=== PATIENT | female | born 1990 | race Asian ===

== ENCOUNTER 2023-06-24 01:40 | Inpatient (IN) ==
[2023-06-24] MEDS ORDERED: Buffered Lidocaine 1% SYRIN 1 ml INTRADERM ONE (03:13)
[2023-06-24] MEDS ORDERED: Promethazine INJ(RESTRICTED) 25 MG/ML 1 ml VIAL IV PRN (03:13)
[2023-06-24] MEDS ORDERED: Nalbuphine 10 MG/ML 1 ML VIAL IV PRN (03:13)
[2023-06-24] MEDS ORDERED: Lactated Ringers 1000 ml BAG 1,000 ML IV ONE ×2 (03:13→09:36)
[2023-06-24] MEDS ORDERED: Oxytocin in LR 20,000 MILLI.UNIT/1,000 ML BAG IV SCH ×2 (03:15→20:35)
[2023-06-24] MEDS ORDERED: Lactated Ringers 1000 ml BAG 1,000 ML IV SCH ×2 (04:00→21:00)
[2023-06-24 04:39] LABS: ABS Basophils 0.1 10^3/uL (0.0-0.1); ABS Eosinophils 0.1 10^3/uL (0.0-0.5); ABS Lymphocytes 1.8 10^3/uL (1.0-4.8); ABS Monocytes 0.5 10^3/uL (0.0-0.9); ABS Neutrophils 5.6 10^3/uL (1.5-7.6); ABS Nucleated RBC 0.01 10^3/ul; Hemoglobin 12.9 g/dL (11.5-14.3); Lymphocyte % 22.4 %; Mean Corpuscular Hemoglobin 31.7 pg (27-33); Mean Corpuscular Hgb Conc 34.7 g/dL (31-36); Mean Corpuscular Volume 91.4 fL (80-97); Mean Platelet Volume 10.2 fL (7.5-11.2); Nucleated Red Blood Cells % 0.1 /100 WBC (0.0-0.4); Platelet Count 227 10^3/uL (150-450); Red Blood Count 4.05 10^6/uL (3.63-4.92); Red Cell Distribution Width 12.7 % (12-17); White Blood Count 7.9 10^3/uL (3.8-11.8)
[2023-06-24 04:58] LABS: Urine Benzodiazepine Screen None Detected (None Detect); Urine Cannabinoids Screen None Detected (None Detect); Urine Opiates Screen None Detected (None Detect)
[2023-06-24] MEDS ORDERED: Lidocaine 1% w EPI 1:200,000 SDV 30 ML VIAL ONE ×2 (08:50→09:52)
[2023-06-24] MEDS ORDERED: OBEPIDURAL (200 ML) 200 ML EPIDURAL ONE (08:50)
[2023-06-24] MEDS ORDERED: Phenylephrine 40 mcg/mL 10mL (400mcg) SYRINGE IV PUSH PRN ×2 (09:36)
[2023-06-24] MEDS ORDERED: Sodium Citrate/Citric Acid LIQ 15 ML UDC PO PRN (09:36)
[2023-06-24] MEDS ORDERED: OBEPIDURAL (200 ML) 200 ML EPIDURAL SCH (10:00)
[2023-06-24 10:26] LABS: Urine Appearance Cloudy; Urine Bilirubin Negative (Negative); Urine Blood 1+ (Negative); Urine Color Yellow; Urine Glucose Negative (Negative); Urine Ketones Trace (Negative); Urine Nitrite Negative (Negative); Urine Protein 3+(>=500 mg/dL) (Negative); Urine Urobilinogen Negative (Negative)
[2023-06-24 10:54] LABS: Urine Bacteria Absent (Absent); Urine Red Blood Cell 3+(>10/hpf) (Absent); Urine Squamous Epithelial Cell Present (Absent); Urine White Blood Cell Trace(0-5/hpf) (Absent)
[2023-06-24] MEDS: Lactated Ringers 1000 ml BAG 1,000 ML IV SCH ×2 (13:20→17:18)
[2023-06-24] MEDS ORDERED: Glycerin ADULT 2.4 gm SUPP PR PRN (20:32)
[2023-06-24] MEDS: Witch Hazel PAD JAR TOPICAL PRN (21:05)
[2023-06-24] MEDS: Dibucaine 1% OINT 28.35 GM TUBE PR PRN (21:05)
[2023-06-25] MEDS ORDERED: Lidocaine 1% VIAL 10 MG/ML VIAL 30 ML ONE (03:15)
[2023-06-25 07:04] LABS: ABS Lymphocytes 1.8 10^3/uL (1.0-4.8); ABS Monocytes 1.1 10^3/uL (0.0-0.9); ABS Neutrophils 14.5 10^3/uL (1.5-7.6); Eosinophil % 0.1 %; Hematocrit 25.6 % (35-45); Hemoglobin 8.8 g/dL (11.5-14.3); Lymphocyte % 10.2 %; Mean Corpuscular Hemoglobin 31.8 pg (27-33); Mean Corpuscular Hgb Conc 34.2 g/dL (31-36); Mean Corpuscular Volume 93.2 fL (80-97); Mean Platelet Volume 9.9 fL (7.5-11.2); Platelet Count 177 10^3/uL (150-450); Red Blood Count 2.75 10^6/uL (3.63-4.92); Red Cell Distribution Width 12.7 % (12-17); White Blood Count 17.4 10^3/uL (3.8-11.8)
[2023-06-26 08:15] VITALS: BP 105/71
[2023-06-26] MEDS: Dibucaine 1% OINT 28.35 GM TUBE PR PRN (11:52)
[2023-06-26] MEDS: Witch Hazel PAD JAR TOPICAL PRN (11:52)
== END 2023-06-26 12:32 | disposition home or self-care (01) | DRG 807 ==
LOC: MCHOBOUT 01:40 → MCHOB 02:33
PROVIDERS: ADMIT Obstetrics & Gynecology; ATTEND Obstetrics & Gynecology